=== PATIENT | female | born 1995 | race Two or more races ===

== ENCOUNTER 2018-12-13 12:18 | Emergency (ER) | payer MEDICAID ==
[~2018-12-13] VITALS: Ht 154.9 cm; Wt 59.4 kg
[2018-12-13 12:31] VITALS: BP 95/58
== END 2018-12-13 13:10 | disposition home or self-care (01) ==
LOC: ER 12:18
DX: M79.644 Pain in right finger(s) (principal)

== ENCOUNTER 2019-03-02 22:30 | Emergency (ER) | payer MEDICAID ==
[~2019-03-02] VITALS: Ht 154.9 cm; Wt 56.7 kg
[2019-03-02 22:48] VITALS: BP 137/62
[2019-03-02] MEDS ORDERED: HYDROCODONE/APAP 10/325MG 1 EA TABLET PO ONE (23:00)
[2019-03-02] MEDS ORDERED: HYDROCODONE/APAP 10/325MG 1 EA TABLET ONE (23:07)
--- NOTE | 2019-03-02 23:07 | NUR ---
RADIOLOGY AT BEDSIDE FOR XRAY
--- NOTE | 2019-03-02 23:13 | NUR ---
PT REFSUED NORCO 10-325 TABLET. WASTED NORCO 10-325 TABLET WITH WICHO ZAMORA BUT RIKI DID NOT ASK FOR WITNESS.
--- NOTE | 2019-03-02 23:20 | NUR ---
FAMILY AT BEDSIDE
--- NOTE | 2019-03-02 23:21 | NUR ---
[facility] AT BEDSIDE
--- NOTE | 2019-03-03 00:30 | NUR ---
Patient discharged to home in stable condition. Written and verbal after care instructions given. Patient verbalizes understanding of instruction.
== END 2019-03-03 00:36 | disposition home or self-care (01) ==
LOC: ER 22:32
DX: S80.12XA Contusion of left lower leg, initial encounter (principal); S80.11XA Contusion of right lower leg, initial encounter; V49.69XA Unspecified car occupant injured in collision with other motor vehicles in traffic accident, initial encounter; Y93.89 Activity, other specified; Y92.413 State road as the place of occurrence of the external cause; Y99.8 Other external cause status
CPT/HCPCS: 73552; 73590-TC

== ENCOUNTER 2022-07-16 10:21 | Emergency (ER) | payer MEDICAID, OTHER ==
[~2022-07-16] VITALS: Ht 154.9 cm; Wt 59.0 kg
--- NOTE | 2022-07-16 10:23 | NUR ---
, from home, c/o back pain since 6am today 02/24 ps, zofran 4mg IVP
[2022-07-16] MEDS ORDERED: KETOROLAC TROMETHAMINE INJ 30 MG/ML VIAL IV ONE (11:00)
[2022-07-16] MEDS ORDERED: CYCLOBENZAPRINE 10 MG TABLET PO ONE (11:00)
[2022-07-16 12:04] LABS: BASOPHILS % (AUTO) 0.3 % (0.0-2.0); EOSINOPHILS % (AUTO) 0.1 % (0.0-6.0); HEMATOCRIT 37 % (33-45); HEMOGLOBIN 11.8 g/dL (11.5-14.8); LYMPHOCYTES # (AUTO) 1.2 K/uL (0.8-4.8); LYMPHOCYTES % (AUTO) 11.4 % (20.0-44.0); MEAN CORPUSCULAR HGB CONC 32 g/dl (31.0-36.0); MEAN CORPUSCULAR VOLUME 82 fL (82-100); MONOCYTES # (AUTO) 0.2 K/uL (0.1-1.30); MONOCYTES % (AUTO) 2.2 % (2.0-12.0); NEUTROPHILS # (AUTO) 9.3 K/uL (1.8-8.9); PLATELET COUNT (AUTO) 386 K/uL (150-450); RED BLOOD CELL COUNT(AUTO) 4.51 MIL/uL (4.0-5.2); WHITE BLOOD COUNT (AUTO) 10.8 K/uL (4.3-11.0)
[2022-07-16 12:18] LABS: ALBUMIN 3.9 g/dL (3.4-5.0); BILIRUBIN,DIRECT 0.1 mg/dL (0.0-0.2); BILIRUBIN,TOTAL 0.5 mg/dL (0.2-1.0); CALCIUM, SERUM 8.9 mg/dL (8.5-10.1); CREATININE 0.7 mg/dL (0.6-1.3); POTASSIUM 3.8 mmol/L (3.5-5.1); TOTAL PROTEIN, SERUM 7.8 g/dL (6.4-8.2)
[2022-07-16] MEDS ORDERED: TAMS-12 PO (13:48)
--- NOTE | 2022-07-16 14:10 | NUR ---
Patient discharged to home in stable condition. Written and verbal after care instructions given. Patient verbalizes understanding of instruction.
--- NOTE | 2022-07-16 14:10 | NUR ---
IV removed. Catheter intact and site benign. Pressure and 4x4 applied to site. No bleeding noted.
[2022-07-16 14:15] VITALS: BP 121/81
== END 2022-07-16 14:20 | disposition home or self-care (01) ==
LOC: ER 10:23
DX: N20.0 Calculus of kidney (principal)
CPT/HCPCS: 36415; 80048-TC; 80076-TC; 84702-TC; 85025-TC

== ENCOUNTER 2023-01-06 18:33 | Emergency (ER) | payer OTHER ==
[~2023-01-06] VITALS: Ht 154.9 cm; Wt 61.2 kg
[2023-01-07 01:30] VITALS: BP 98/64; TEMP 98; O2SAT 98
== END 2023-01-07 01:00 | disposition home or self-care (01) ==
LOC: ER 18:35
DX: M25.532 Pain in left wrist (principal); M25.531 Pain in right wrist; M79.605 Pain in left leg; M79.604 Pain in right leg; V89.2XXA Person injured in unspecified motor-vehicle accident, traffic, initial encounter; Y93.89 Activity, other specified; Y92.89 Other specified places as the place of occurrence of the external cause; Y99.8 Other external cause status
CPT/HCPCS: 71045-TC; 73110; 73521; 73590-TC